=== PATIENT | male | born 1945 | race Native Hawaiian/Other Pacific Islander ===

== ENCOUNTER 2018-01-12 11:28 | Inpatient (IN) | payer OTHER ==
[2018-01-12] MEDS ORDERED: LORazepam 2 MG/ML INJ IM STA (12:42)
[2018-01-12] MEDS ORDERED: diphenhydrAMINE 50 MG/ML 1 ML VIAL IM STA (12:42)
--- NOTE | 2018-01-12 12:46 | ED ---
General Adult HPI - General Source: patient, family Mode of arrival: ambulatory Limitations: no limitations <Alexi Prajapati - Last Filed: 01/12/18 21:49> <Elieser Crooks - Last Filed: 01/13/18 01:51> - General Chief complaint: Psychiatric Symptoms Stated complaint: Mental Health Time Seen by Provider: 01/12/18 12:09 - History of Present Illness Initial comments: Patient is a 9-year-old male with a history of schizophrenia who presents with a chief complaint of davis. He is here with his family. The patient just flew in from [place] for a graduation, family states that his symptoms of been getting worse since . They state he has not slept since . They state that he has had manic episodes in the past however this is the worst one. They state that the patient was cleared to fly by his primary care doctor. The patient is unable to offer his history, spots are flighty and speech is pressured and tangential. (Alexi Prajapati) - Related Data Home Medications Medication Instructions Recorded Confirmed Aspirin EC [Ecotrin Low Dose] 81 mg PO DAILY 01/12/18 01/12/18 Cholecalciferol (Vitamin D3) 2,000 unit PO DAILY 01/12/18 01/12/18 [Vitamin D3] Lisinopril-Hctz 20-25 mg 1 tab PO DAILY 01/12/18 01/12/18 [Zestoretic 20-25] Lurasidone [Latuda] 20 mg PO DAILY 01/12/18 01/12/18 Omeprazole [PriLOSEC] 20 mg PO DAILY 01/12/18 01/12/18 levETIRAcetam [Keppra] 500 mg PO BID 01/12/18 01/12/18 traZODone HCL 50 mg PO HS PRN 01/12/18 01/12/18 Allergies Allergy/AdvReac Type Severity Reaction Status Date / Time No Known Allergies Allergy Verified 01/12/18 13:08 Review of Systems ROS Other: All systems not noted in ROS Statement are negative. Psychiatric: Reports: other (davis) <Alexi Prajapati - Last Filed: 01/12/18 21:49> ROS Other: All systems not noted in ROS Statement are negative. <Elieser Crooks - Last Filed: 01/13/18 01:51> ROS Statement: Those systems with pertinent positive or pertinent negative responses have been documented in the HPI. Past Medical History Past Medical History: GERD/Reflux, Hypertension, Seizure Disorder History of Any Multi-Drug Resistant Organisms: None Reported Past Surgical History: Hernia Repair Past Psychological History: Bipolar, Depression, Schizoaffective Disorder Smoking Status: Current every day smoker Past Alcohol Use History: Occasional Past Drug Use History: Marijuana <Alexi Prajapati Last Filed: 01/12/18 21:49> General Exam Limitations: no limitations General appearance: alert, anxious Head exam: Present: atraumatic, normocephalic Eye exam: Present: normal appearance, PERRL ENT exam: Present: normal exam Neck exam: Present: normal inspection, full ROM. Absent: meningismus, lymphadenopathy Respiratory exam: Present: normal lung sounds bilaterally. Absent: respiratory distress, wheezes Cardiovascular Exam: Present: regular rate, normal rhythm GI/Abdominal exam: Present: soft. Absent: distended, tenderness Rectal exam: Present: deferred Extremities exam: Present: normal inspection Back exam: Present: normal inspection Neurological exam: Present: alert, CN II-XII intact Psychiatric exam: Present: agitated, anxious, manic Skin exam: Present: warm, dry, intact <Alexi Prajapati Last Filed: 01/12/18 21:49> Vital Signs 01/12/18 01/12/18 01/12/18 11:29 12:26 13:32 Temperature 98.7 F Pulse Rate 130 H 115 H 98 Respiratory 18 22 20 Rate Blood Pressure 176/100 123/67 O2 Sat by Pulse 96 100 Oximetry 01/12/18 01/12/18 01/12/18 14:51 15:43 17:00 Temperature Pulse Rate 98 89 89 Respiratory 20 22 20 Rate Blood Pressure 132/56 134/56 145/65 O2 Sat by Pulse 95 95 95 Oximetry 01/12/18 01/12/18 01/12/18 18:45 20:27 22:00 Temperature Pulse Rate 89 98 71 Respiratory 20 16 15 Rate Blood Pressure 141/56 120/76 128/61 O2 Sat by Pulse 99 97 92 L Oximetry Medical Decision Making - Lab Data Result diagrams: 01/12/18 13:30 01/12/18 13:30 <Alexi Prajapati - Last Filed: 01/12/18 21:49> - Lab Data Result diagrams: 01/12/18 13:30 01/12/18 13:30 <Elieser Crooks - Last Filed: 01/13/18 01:51> - Medical Decision Making Patient presents with a chief complaint of davis. On initial evaluation, the patient is agitated, his speech is pressured and tangential, the patient denies auditory or visual hallucinations. At this time, patient is unable to offer history and is uncooperative with exam. He will be given Benadryl, Haldol, and Ativan. Patient will be evaluated with basic labs including a thyroid screen, CPK, cardiac enzymes, and CT of the head. 9:50PM lab evaluation unremarkable except for mild leukocytosis. no source of infection found. on re-evaluation, patient is much calmer. patient slept for about 5 hours in the ED and is much more cooperative after waking up. patient was evaluated by EPS. plan to admit patient, however patient is seen at the [facility] and [facility] this case will be followed by overnight physician. (Alexi Prajapati) I was asked to see the patient regarding following clinical certification. I reviewed the chart and spoke with the patient. He does continue to have some disorganized thought processes and a little bit of delusional thought content. ( Elieser Crooks) - Lab Data Lab Results 01/12/18 01/12/18 01/12/18 Range/Units 13:30 13:30 13:30 WBC 13.8 H (3.8-10.6) k/uL RBC 4.70 (4.30-5.90) m/uL Hgb 14.5 (13.0-17.5) gm/dL Hct 42.8 (39.0-53.0) % MCV 91.1 (80.0-100.0) fL MCH 30.8 (25.0-35.0) pg MCHC 33.9 (31.0-37.0) g/dL RDW 13.6 (11.5-15.5) % Plt Count 525 H (150-450) k/uL Neutrophils % 78 % Lymphocytes % 10 % Monocytes % 8 % Eosinophils % 3 % Basophils % 0 % Neutrophils # 10.7 H (1.3-7.7) k/uL Lymphocytes # 1.4 (1.0-4.8) k/uL Monocytes # 1.1 H (0-1.0) k/uL Eosinophils # 0.4 (0-0.7) k/uL Basophils # 0.1 (0-0.2) k/uL Sodium 142 (137-145) mmol/L Potassium 4.3 (3.5-5.1) mmol/L Chloride 104 (98-107) mmol/L Carbon Dioxide 22 (22-30) mmol/L Anion Gap 16 mmol/L BUN 23 H (9-20) mg/dL Creatinine 1.08 (0.66-1.25) mg/dL Est GFR (CKD-EPI)AfAm 80 (>60 ml/min/1.73 sqM) Est GFR (CKD-EPI)NonAf 69 (>60 ml/min/1.73 sqM) Glucose 129 H (74-99) mg/dL Calcium 10.4 H (8.4-10.2) mg/dL Total Bilirubin 0.9 (0.2-1.3) mg/dL AST 40 (17-59) U/L ALT 31 (21-72) U/L Alkaline Phosphatase 55 (38-126) U/L Creatine Kinase 672 H (55-170) U/L Troponin I (0.000-0.034) ng/mL NT-Pro-B Natriuret Pep 91 pg/mL Total Protein 7.8 (6.3-8.2) g/dL Albumin 4.8 (3.5-5.0) g/dL Lipase 183 (23-300) U/L TSH 0.553 (0.465-4.680) mIU/L Serum Alcohol <10 mg/dL 01/12/18 Range/Units 13:30 WBC (3.8-10.6) k/uL RBC (4.30-5.90) m/uL Hgb (13.0-17.5) gm/dL Hct (39.0-53.0) % MCV (80.0-100.0) fL MCH (25.0-35.0) pg MCHC (31.0-37.0) g/dL RDW (11.5-15.5) % Plt Count (150-450) k/uL Neutrophils % % Lymphocytes % % Monocytes % % Eosinophils % % Basophils % % Neutrophils # (1.3-7.7) k/uL Lymphocytes # (1.0-4.8) k/uL Monocytes # (0-1.0) k/uL Eosinophils # (0-0.7) k/uL Basophils # (0-0.2) k/uL Sodium (137-145) mmol/L Potassium (3.5-5.1) mmol/L Chloride (98-107) mmol/L Carbon Dioxide (22-30) mmol/L Anion Gap mmol/L BUN (9-20) mg/dL Creatinine (0.66-1.25) mg/dL Est GFR (CKD-EPI)AfAm (>60 ml/min/1.73 sqM) Est GFR (CKD-EPI)NonAf (>60 ml/min/1.73 sqM) Glucose (74-99) mg/dL Calcium (8.4-10.2) mg/dL Total Bilirubin (0.2-1.3) mg/dL AST (17-59) U/L ALT (21-72) U/L Alkaline Phosphatase (38-126) U/L Creatine Kinase (55-170) U/L Troponin I <0.012 (0.000-0.034) ng/mL NT-Pro-B Natriuret Pep pg/mL Total Protein (6.3-8.2) g/dL Albumin (3.5-5.0) g/dL Lipase (23-300) U/L TSH (0.465-4.680) mIU/L Serum Alcohol mg/dL Disposition <Alexi Prajapati - Last Filed: 01/12/18 21:49> <Elieser Crooks - Last Filed: 01/13/18 01:51> Referrals: Nonstaff,Physician [Primary Care Provider] - 1-2 days
[2018-01-12] MEDS: HALOPERIDOL LACTATE 5 MG/ML 1 ML VIAL IM PRN ×2 (13:30→23:31)
[2018-01-12] MEDS ORDERED: diphenhydrAMINE 50 MG/ML 1 ML VIAL IVP STA (13:37)
[2018-01-12] MEDS ORDERED: LORazepam 2 MG/ML INJ IV STA (13:38)
[2018-01-12 13:46] LABS: Basophils # (A) 0.1 k/uL (0-0.2); Basophils % (A) 0 %; Eosinophils # (A) 0.4 k/uL (0-0.7); Eosinophils % (A) 3 %; HCT 42.8 % (39.0-53.0); HGB 14.5 gm/dL (13.0-17.5); Lymphocytes # (A) 1.4 k/uL (1.0-4.8); Lymphocytes % (A) 10 %; MCH 30.8 pg (25.0-35.0); MCHC 33.9 g/dL (31.0-37.0); MCV 91.1 fL (80.0-100.0); Mean Platelet Volume 6.2; Monocytes # (A) 1.1 k/uL (0-1.0); Monocytes % (A) 8 %; Neutrophils # (A) 10.7 k/uL (1.3-7.7); Neutrophils % (A) 78 %; Platelet Count 525 k/uL (150-450); RDW 13.6 % (11.5-15.5); WBC 13.8 k/uL (3.8-10.6)
[2018-01-12 13:51] LABS: ALT 31 U/L (21-72); AST 40 U/L (17-59); Albumin 4.8 g/dL (3.5-5.0); Alcohol <10 mg/dL; Alkaline Phosphatase 55 U/L (38-126); Anion Gap 16 mmol/L; Blood Urea Nitrogen 23 mg/dL (9-20); Calcium 10.4 mg/dL (8.4-10.2); Carbon Dioxide 22 mmol/L (22-30); Chloride 104 mmol/L (98-107); Creatine Kinase 672 U/L (55-170); Glucose 129 mg/dL (74-99); Lipase 183 U/L (23-300); Potassium 4.3 mmol/L (3.5-5.1); Sodium 142 mmol/L (137-145); Total Bilirubin 0.9 mg/dL (0.2-1.3); Total Protein 7.8 g/dL (6.3-8.2)
--- NOTE | 2018-01-12 14:06 | CT ---
EXAMINATION TYPE: CT brain wo con DATE OF EXAM: 01/12/2018 COMPARISON: NONE HISTORY: Mental Health CT DLP: 1150.[address] of the brain was performed. The ventricles, basal cisterns and sulci overlying the cerebral convexities demonstrate mild enlargem ent. There is no evidence for intracranial hemorrhage or sulcal effacement. Right occipital lobe focal ca lcifications may be related to remote insult. Underlying mass or vascular malformation is not exclude d. MRI recommended for further evaluation. There is decreased attenuation about the periventricular white matter and deep white matter of both c erebral hemispheres, compatible with chronic small vessel ischemia. Differential diagnosis does inclu de demyelination. No mass effects are seen.No midline shift. Osseous calvarium is intact. If symptoms persist consider MRI. IMPRESSION: 1. Age related atrophic and chronic small vessel ischemic change without acute intracranial process s een at this time.
[2018-01-12] MEDS ORDERED: traZODone HCL 50 MG TAB PO ONE (22:56)
[2018-01-13 12:51] LABS: Appearance,Urine Clear (Clear); Bilirubin,Urine Negative (Negative); Blood,Urine Negative (Negative); Color,Urine Yellow; Glucose,Urine (UA) Negative (Negative); Ketones,Urine Negative (Negative); Leukocyte Esterase,Urine Negative (Negative); Nitrite,Urine Negative (Negative); PH, Urine 5.5 (5.0-8.0); Protein,Urine Negative (Negative); Specific Gravity,Urine 1.018 (1.001-1.035); Urobilinogen,Urine <2.0 mg/dL (<2.0)
[2018-01-13 13:14] LABS: Amphetamine Screen,Urine Not Detected (NotDetected); Barbiturate Screen,Urine Not Detected (NotDetected); Benzodiazepines Screen,Urine Detected (NotDetected); Cocaine Screen,Urine Not Detected (NotDetected); Methadone Screen, Urine Not Detected (NotDetected); Opiate Screen,Urine Not Detected (NotDetected); Oxycodone Screen, Urine Not Detected (NotDetected); Phencyclidine Screen,Urine Not Detected (NotDetected); Tricyclic Antidepressant,Urine Not Detected (NotDetected); Urn Cannabinoid Scrn Detected (NotDetected)
[2018-01-13] MEDS ORDERED: MAG HYDROX/AL HYDROX/SIMETH 30 ML CUP PO PRN (13:45)
[2018-01-13] MEDS ORDERED: ZIPRASIDONE 20 MG VIAL IM PRN (13:45)
[2018-01-13] MEDS ORDERED: MAGNESIUM HYDROXIDE 2,400 MG/10 ML CUP PO PRN (13:45)
[2018-01-13] MEDS ORDERED: traZODone HCL 50 MG TAB PO PRN (13:46)
--- NOTE | 2018-01-13 15:18 | P.HP ---
Psychiatric H&P - . H&P Date: 01/13/18 History & Physical: Allergies Allergy/AdvReac Type Severity Reaction Status Date / Time No Known Allergies Allergy Verified 01/12/18 13:08 Vital Signs Temp 98.8 F 01/13/18 14:06 Pulse 83 01/13/18 14:06 Resp 18 01/13/18 14:06 BP 162/81 01/13/18 14:06 Pulse Ox 96 01/13/18 14:06 Intake & Output 01/12/18 01/13/18 01/13/18 18:59 06:59 18:59 Weight 72.575 kg Laboratory Last Values WBC 13.8 k/uL (3.8-10.6) H 01/12/18 13:30 RBC 4.70 m/uL (4.30-5.90) 01/12/18 13:30 Hgb 14.5 gm/dL (13.0-17.5) 01/12/18 13:30 Hct 42.8 % (39.0-53.0) 01/12/18 13:30 MCV 91.1 fL (80.0-100.0) 01/12/18 13:30 MCH 30.8 pg (25.0-35.0) 01/12/18 13:30 MCHC 33.9 g/dL (31.0-37.0) 01/12/18 13:30 RDW 13.6 % (11.5-15.5) 01/12/18 13:30 Plt Count 525 k/uL (150-450) H 01/12/18 13:30 Neutrophils % 78 % 01/12/18 13:30 Lymphocytes % 10 % 01/12/18 13:30 Monocytes % 8 % 01/12/18 13:30 Eosinophils % 3 % 01/12/18 13:30 Basophils % 0 % 01/12/18 13:30 Neutrophils # 10.7 k/uL (1.3-7.7) H 01/12/18 13:30 Lymphocytes # 1.4 k/uL (1.0-4.8) 01/12/18 13:30 Monocytes # 1.1 k/uL (0-1.0) H 01/12/18 13:30 Eosinophils # 0.4 k/uL (0-0.7) 01/12/18 13:30 Basophils # 0.1 k/uL (0-0.2) 01/12/18 13:30 Sodium 142 mmol/L (137-145) 01/12/18 13:30 Potassium 4.3 mmol/L (3.5-5.1) 01/12/18 13:30 Chloride 104 mmol/L (98-107) 01/12/18 13:30 Carbon Dioxide 22 mmol/L (22-30) 01/12/18 13:30 Anion Gap 16 mmol/L 01/12/18 13:30 BUN 23 mg/dL (9-20) H 01/12/18 13:30 Creatinine 1.08 mg/dL (0.66-1.25) 01/12/18 13:30 Est GFR (CKD-EPI)AfAm 80 (>60 ml/min/1.73 sqM) 01/12/18 13:30 Est GFR (CKD-EPI)NonAf 69 (>60 ml/min/1.73 sqM) 01/12/18 13:30 Glucose 129 mg/dL (74-99) H 01/12/18 13:30 Calcium 10.4 mg/dL (8.4-10.2) H 01/12/18 13:30 Total Bilirubin 0.9 mg/dL (0.2-1.3) 01/12/18 13:30 AST 40 U/L (17-59) 01/12/18 13:30 ALT 31 U/L (21-72) 01/12/18 13:30 Alkaline Phosphatase 55 U/L (38-126) 01/12/18 13:30 Creatine Kinase 672 U/L (55-170) H 01/12/18 13:30 Troponin I <0.012 ng/mL (0.000-0.034) 01/12/18 13:30 NT-Pro-B Natriuret Pep 91 pg/mL 01/12/18 13:30 Total Protein 7.8 g/dL (6.3-8.2) 01/12/18 13:30 Albumin 4.8 g/dL (3.5-5.0) 01/12/18 13:30 Lipase 183 U/L (23-300) 01/12/18 13:30 TSH 0.553 mIU/L (0.465-4.680) 01/12/18 13:30 Urine Color Yellow 01/13/18 12:42 Urine Appearance Clear (Clear) 01/13/18 12:42 Urine pH 5.5 (5.0-8.0) 01/13/18 12:42 Ur Specific [place] 1.018 (1.001-1.035) 01/13/18 12:42 Urine Protein Negative (Negative) 01/13/18 12:42 Urine Glucose (UA) Negative (Negative) 01/13/18 12:42 Urine Ketones Negative (Negative) 01/13/18 12:42 Urine Blood Negative (Negative) 01/13/18 12:42 Urine Nitrite Negative (Negative) 01/13/18 12:42 Urine Bilirubin Negative (Negative) 01/13/18 12:42 Urine Urobilinogen <2.0 mg/dL (<2.0) 01/13/18 12:42 Ur Leukocyte Esterase Negative (Negative) 01/13/18 12:42 Urine Opiates Screen Not Detected (NotDetected) 01/13/18 12:42 Ur Oxycodone Screen Not Detected (NotDetected) 01/13/18 12:42 Urine Methadone Screen Not Detected (NotDetected) 01/13/18 12:42 Ur Propoxyphene Screen Not Detected (NotDetected) 01/13/18 12:42 Ur Barbiturates Screen Not Detected (NotDetected) 01/13/18 12:42 U Tricyclic Antidepress Not Detected (NotDetected) 01/13/18 12:42 Ur Phencyclidine Scrn Not Detected (NotDetected) 01/13/18 12:42 Ur Amphetamines Screen Not Detected (NotDetected) 01/13/18 12:42 U Methamphetamines Scrn Not Detected (NotDetected) 01/13/18 12:42 U Benzodiazepines Scrn Detected (NotDetected) H 01/13/18 12:42 Urine Cocaine Screen Not Detected (NotDetected) 01/13/18 12:42 U Marijuana (THC) Screen Detected (NotDetected) H 01/13/18 12:42 Serum Alcohol <10 mg/dL 01/12/18 13:30 01/13/18 15:01 Identification: Alejo Ponce is a 72 years old [place] male living in [facility]. He was admitted to [facility] on 01/13/2018 stating that he has history of schizophrenia and came to ER with the chief complaint of davis. History of present illness: Patient is not a good historian. He said he came to [facility] to attend the graduation of his granddaughter apparently since 01/08/2018 he has been hyperactive not sleeping well talking too much etc. Patient denies any other behavioral problems, hallucinations etc. patient said he has bipolar disorder, psychosis and schizophrenia. He denies any other specific issues. Previous psychiatric history/drug and alcohol abuse: He said he was in psychiatric hospitals about 6 times. He gets his outpatient treatment at [facility]. He denies abusing alcohol. He says he has been smoking pot for about 15 years now. He said he smokes and eats Potcakes. He could not tell me how much he smokes or eats. He denies abusing other drugs. His drug screening is positive for cannabis and benzodiazepines. Previous medical history: He is not ALLERGIC to any medication. He has hypertension and GERD. He is on Keppra but he denies history of seizure disorder. He had right inguinal hernia repair and a small lump from the chest skin was removed in the past. Social history: He said he has some [employer]. When he was going to school he said he did not have any issues with learning or discipline. He said he went to school in [place] for the first 5 years and then he went to school in [place]. He could not tell me if he had played any sports games or about his to [facility] structure. He got in 1973 and currently lives with and his 40-year-old son who is single and an alcoholic. He said he was in the [employer] for 4 years and apparently he had a This past and was in some kind of a confinement for 3 or 15 months for demanding his discharge. He was in cargo section of the ship. He was discharged as he 3. He said he is 100% service- connected for schizophrenia or bipolar disorder and has [place] health insurance. He said he was a Mor[employer] but he has changed his druze and now he believes just in sun and teo. He denies any pending legal issues. He is heterosexual. Family history: He said his mother has cancer and father has hypertension. One brother committed suicide and another brother is an alcoholic. His son is also an alcoholic. Mental status examination: This is a ambulatory Welsh Ghanaian with adequate hygiene. He is polite and cooperative. But he is not able to provide good history. He gets hyperactive and restless. His speech is spontaneous and mildly pressured with flight of ideas. His mood is from being anxious to elated and affect is appropriate. He denies suicide and homicide thoughts. He also denies hallucinations and delusional thinking. He is well oriented. He is able to recall only one out of 3 items after 5 minutes. He is able to name the last 4 presidents correctly. He is able to spell house both forwards and backwards correctly. He is able to say 8+7 is 15 and 87 is 56 without any difficulty. His insight appears to be adequate but his judgment is impaired as evidenced by his manic state of mind and not able to provide good history. Diagnostic impression: Bipolar 1 disorder current episode manic moderate F 31.12. Cannabis use disorder severe F 12.20. NKDA. Hypertension. GERD. Probable seizure disorder. Treatment plan: He will have physical examination and psychosocial evaluation. He will receive milieu therapy group therapy individual therapy occupational therapy recreational therapy and medication education. His home medications for physical problems will be continued. I will increase his Latuda from 20 to 40 mg a day and change trazodone when necessary at bedtime to melatonin 3 mg at bedtime to help him sleep well. Discharge with outpatient follow-up or transfer to the [facility] when they have an empty bed. Treatment goals: His mood will be stable. He will be able to sleep well. He will be able to provide better history. He will learn better coping skills. Estimated length of stay: 3-5 days.
[2018-01-13 15:45] VITALS: BMI 25.8
--- NOTE | 2018-01-13 16:41 | P.MDCNMH ---
History of Present Illness H&P Date: 01/13/18 Chief Complaint: Mental health evaluation 72 years old [place] male who lives in [facility], he's here for his granddaughter graduation constitution party. He was admitted to [facility] because of complaint of davis. He has been hyperactive, not sleeping well, talking too much. Denied hallucinations. He could only tell me that he has hypertension and a peptic ulcer. When asked to review his meds with me he wasn't able to remember any of his medications. During the conversation he became angry for repeating himself many times telling his history. He denied any recent illness, fevers, chills, nausea or vomitting. No chest pain or sob. Review of Systems 12 point review of system performed, negative except for HPI Past Medical History Past Medical History: GERD/Reflux, Hypertension, Seizure Disorder History of Any Multi-Drug Resistant Organisms: None Reported Past Surgical History: Hernia Repair Past Psychological History: Bipolar, Depression, Schizoaffective Disorder Smoking Status: Current every day smoker Past Alcohol Use History: Occasional Additional Past Alcohol Use History / Comment(s): Pt states he only has an alcoholic drink on special occasions Past Drug Use History: Marijuana Additional Drug Use History / Comment(s): Pt states he smokes marijuana daily, usually 5-6 joints a day Medications and Allergies Home Medications Medication Instructions Recorded Confirmed Type Aspirin EC [Ecotrin Low Dose] 81 mg PO DAILY 01/12/18 01/12/18 History Cholecalciferol (Vitamin D3) 2,000 unit PO DAILY 01/12/18 01/12/18 History [Vitamin D3] Lisinopril-Hctz 20-25 mg 1 tab PO DAILY 01/12/18 01/12/18 History [Zestoretic 20-25] Lurasidone [Latuda] 20 mg PO DAILY 01/12/18 01/12/18 History Omeprazole [PriLOSEC] 20 mg PO DAILY 01/12/18 01/12/18 History levETIRAcetam [Keppra] 500 mg PO BID 01/12/18 01/12/18 History traZODone HCL 50 mg PO HS PRN 01/12/18 01/12/18 History Allergies Allergy/AdvReac Type Severity Reaction Status Date / Time No Known Allergies Allergy Verified 01/12/18 13:08 Physical Exam Vitals: Vital Signs Temp Pulse Pulse Resp BP BP Pulse Ox 01/13/18 15:29 98.4 F 85 16 141/83 98 01/13/18 14:06 98.8 F 83 18 162/81 96 01/13/18 08:56 83 18 152/72 97 01/13/18 06:12 91 16 138/80 100 01/13/18 04:48 97.8 F 75 15 136/67 98 01/13/18 02:56 97.0 F L 75 20 128/75 96 01/12/18 22:00 71 15 128/61 92 L 01/12/18 20:27 98 16 120/76 97 01/12/18 18:45 89 20 141/56 99 01/12/18 17:00 89 20 145/65 95 Intake and Output 01/13/18 01/13/18 01/13/18 06:59 14:59 22:59 Other: Weight 79.3 kg Constitutional: No acute distress, conversant, pleasant Eyes:Anicteric sclerae, moist conjunctiva, no lid-lag, PERRLA, ENMT: Oropharynx clear, no erythema, exudates Neck: Supple, FROM, no masses, or JVD, No carotid bruits, No thyromegaly Lungs: Clear to auscultation, Clear to percussion, Normal respiratory effort, no accessory muscle use Cardiovascular: Heart regular in rate and rhythm, No murmurs, gallops, or rubs, No peripheral edema Abdominal: Soft, Nontender, no guarding, rebound or rigidity, Normoactive bowel sounds, No hepatomegaly, No splenomegaly, No palpable mass Skin: Normal temperature, tone, texture, turgor, no induration, No subcutaneous nodules, No rash, lesions, No ulcers Extremities: No digital cyanosis, No clubbing, Pedal pulses intact and symmetrical, Radial pulses intact and symmetrical, No calf tenderness Psychiatric: Alert and oriented to person, place and time, impaired judgement Neuro: Muscles Strength 5/5 in all 4 extremities, Sensation to light touch grossly present throughout, Cranial nerves II-XII grossly intact, no focal sensory deficits Cranial Nerve Examination - Cranial Nerves Cranial Nerve II- Optic: Intact Cranial Nerve III- Oculomotor: Intact Cranial Nerve IV- Trochlear: Intact Cranial Nerve V- Trigeminal: Intact Cranial Nerve - Abducens: Intact Cranial Nerve VII- Facial: Intact Cranial Nerve VIII- Auditory: Intact Cranial Nerve IX- Glossopharyngeal: Intact Cranial Nerve X- Vagus: Intact Cranial Nerve XI- Accessory: Intact Cranial Nerve XII- Hypoglossal: Intact Results CBC & Chem 7: 01/12/18 13:30 01/12/18 13:30 Labs: Abnormal Lab Results - Last 24 Hours (Table) 01/13/18 Range/Units 12:42 U Benzodiazepines Scrn Detected H (NotDetected) U Marijuana (THC) Screen Detected H (NotDetected) Assessment and Plan Plan: # Manic episode, bipolar disorder: Management per psychiatry Checked CBC, CMP, TSH, urinalysis, urine drug screen, all reviewed HbA1c and lipid panel pending # Hypertension, essential, peptic ulcer disease, seizure disorder Stable Resume home medications # Smoking Patient is interested in nicotine patch, will order Advised to quit
[2018-01-13] MEDS ORDERED: NICOTINE 14MG/24HR PATCH TRANSDERM ONE (19:12)
[2018-01-13] MEDS: NICOTINE 14MG/24HR PATCH TRANSDERM SCH (19:12)
[2018-01-13] MEDS: MELATONIN 3 MG TABLET PO SCH (21:41)
[2018-01-13] MEDS: levETIRAcetam 500 MG TAB PO SCH (21:41)
[2018-01-14 02:37] LABS: Cholesterol 168 mg/dL (<200); HDL Cholesterol 39 mg/dL (40-60); LDL Cholesterol,Calculated 91 mg/dL (0-99); Triglycerides 189 mg/dL (<150)
[2018-01-14] MEDS ORDERED: LURASIDONE 40 MG TAB PO SCH (09:00)
[2018-01-14] MEDS: ASPIRIN 81 MG PO SCH (09:09)
[2018-01-14] MEDS: PANTOPRAZOLE 40 MG TABLET PO SCH (09:09)
[2018-01-14] MEDS: LISINOPRIL-HCTZ 20-25 MG 1 EACH TAB PO SCH (09:09)
[2018-01-14] MEDS: levETIRAcetam 500 MG TAB PO SCH ×2 (09:09→21:46)
[2018-01-14] MEDS: CHOLECALCIFEROL 1,000 UNIT TAB PO SCH (09:09)
[2018-01-14] MEDS: LURASIDONE 40 MG TAB PO SCH (09:09)
[2018-01-14 11:06] LABS: Hemoglobin A1C 5.8 % (4.0-6.0)
--- NOTE | 2018-01-14 11:48 | P.PN ---
Progress Note - Text Progress Note Date: 01/14/18 Patient was seen for follow-up examination. He has not been sleeping well and has not shown any behavioral disturbances. He says he doesn't usually sleep much and he gets plenty of sleep. He has been taking his medications, attends groups and socializes with some peers. He does not have any particular complaint. This is a [place] male with good hygiene. He is polite and cooperative. He gets a little hyperactive. His speech is spontaneous and pressured. He talked a lot about numbers, christian system, how he wanted to be a white man when he was little etc. He uses foul language at times and said [facility] is a bad person and doesn't know anything much. He said the OR gave him an MRI and told them that part of his brain is still growing and they want to give him a follow-up examination but it is not yet time for it. His mood is cheerful and affect is appropriate to the thought content. He continues to deny suicide and homicide thoughts. He denies hallucinations. But he appears to be somewhat grandiose and paranoid. He is well oriented with adequate memory concentration general fund of knowledge etc. Plan: Continue Latuda, melatonin and other medications, groups and therapies.
[2018-01-14] MEDS: NICOTINE 14MG/24HR PATCH TRANSDERM SCH (15:33)
[2018-01-14] MEDS: MELATONIN 3 MG TABLET PO SCH (21:46)
[2018-01-15] MEDS: PANTOPRAZOLE 40 MG TABLET PO SCH (09:26)
[2018-01-15] MEDS: levETIRAcetam 500 MG TAB PO SCH ×2 (09:26→20:09)
[2018-01-15] MEDS: CHOLECALCIFEROL 1,000 UNIT TAB PO SCH (09:26)
[2018-01-15] MEDS: LISINOPRIL-HCTZ 20-25 MG 1 EACH TAB PO SCH (09:26)
[2018-01-15] MEDS: ASPIRIN 81 MG PO SCH (09:26)
[2018-01-15] MEDS: NICOTINE 14MG/24HR PATCH TRANSDERM SCH (09:27)
[2018-01-15] MEDS: LURASIDONE 40 MG TAB PO SCH (09:27)
[2018-01-15] MEDS ORDERED: LURASIDONE 40 MG TAB PO ONE (11:45)
--- NOTE | 2018-01-15 11:46 | P.PN ---
Progress Note - Text Progress Note Date: 01/15/18 Patient was seen for a follow-up examination. He said he got a call from his doctor last night and asked him if he is going to behavioral during the graduation green party on of this month. He said that hurt is feeling and he is very upset, and doesn't want to go to the green party and either will go to the [place] from here or go home only on or of this month to catch his flight on . He has been taking his medications without any adverse effect. He attends groups, but, apparently he has been talking a lot making lots of grandiose statements etc. This is a malian Monegasque male with adequate hygiene. He is polite and cooperative. He does not show any psychomotor agitation or retardation. His speech is spontaneous, pressured with flight of ideas. 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 He talks about reincarnation, spiritual books of Katie etc. His mood is elated and affect is appropriate to the thought content. He denies suicide and homicide thoughts. He denies hallucinations. He continues to be grandiose. He is oriented with adequate memory general knowledge etc. Plan: Increase Latuda to 80 mg a day and start him on Trileptal 300 mg twice a day for better mood stabilization. Continue groups and other therapies.
[2018-01-15] MEDS: OXcarbazepine 300 MG TAB PO SCH ×2 (11:51→20:09)
[2018-01-15] MEDS: MELATONIN 3 MG TABLET PO SCH (20:09)
[2018-01-16] MEDS: LORazepam 1 MG TAB PO PRN ×2 (01:22→23:12)
[2018-01-16] MEDS: OXcarbazepine 300 MG TAB PO SCH ×2 (09:03→21:32)
[2018-01-16] MEDS: NICOTINE 14MG/24HR PATCH TRANSDERM SCH (09:03)
[2018-01-16] MEDS: CHOLECALCIFEROL 1,000 UNIT TAB PO SCH (09:03)
[2018-01-16] MEDS: PANTOPRAZOLE 40 MG TABLET PO SCH (09:04)
[2018-01-16] MEDS: LURASIDONE 80 MG TAB PO SCH (09:04)
[2018-01-16] MEDS: LISINOPRIL-HCTZ 20-25 MG 1 EACH TAB PO SCH (09:04)
[2018-01-16] MEDS: ASPIRIN 81 MG PO SCH (09:04)
[2018-01-16] MEDS: levETIRAcetam 500 MG TAB PO SCH ×2 (09:04→21:32)
--- NOTE | 2018-01-16 10:40 | P.PN ---
Progress Note - Text Progress Note Date: 01/16/18 Patient was seen for follow-up examination. He continues to be talkative and grandiose. He attends groups and socializes with peers and staff. He takes his medications and does not have any adverse effect. I talked to his and daughter, who are afraid that patient may fall apart if he goes to the graduation republican of his grand daughter tomorrow. They agreed to come and visit him tomorrow. Patient is comfortable in staying here instead of being discharged and having to attend the graduation republican tomorrow. This is a [place] ambulatory male with good hygiene. He is polite friendly cheerful and cooperative. He does not show any psychomotor agitation or retardation. He is not hyperactive either. His speech is spontaneous, pressured with some flight of ideas. His mood continues to be related and is grandiose. He says he is the greatest like Belkys Peterson and a reincarnation of [facility]. He denies suicide and homicide thoughts. He is well oriented with adequate memory, general knowledge etc. Plan: Continue Latuda 80 mg a day and Trileptal 300 mg twice a day, groups and other therapies.
[2018-01-16] MEDS: MELATONIN 3 MG TABLET PO SCH (21:32)
[2018-01-17] MEDS: NICOTINE 14MG/24HR PATCH TRANSDERM SCH (08:00)
[2018-01-17] MEDS: CHOLECALCIFEROL 1,000 UNIT TAB PO SCH (08:01)
[2018-01-17] MEDS: LURASIDONE 80 MG TAB PO SCH (08:01)
[2018-01-17] MEDS: OXcarbazepine 300 MG TAB PO SCH ×2 (08:01→20:34)
[2018-01-17] MEDS: LISINOPRIL-HCTZ 20-25 MG 1 EACH TAB PO SCH (08:01)
[2018-01-17] MEDS: levETIRAcetam 500 MG TAB PO SCH ×2 (08:01→20:34)
[2018-01-17] MEDS: ASPIRIN 81 MG PO SCH (08:01)
[2018-01-17] MEDS: PANTOPRAZOLE 40 MG TABLET PO SCH (08:01)
[2018-01-17] MEDS: ACETAMINOPHEN TAB 325 MG TAB PO PRN (09:09)
[2018-01-17] MEDS ORDERED: IBUPROFEN 600 MG TAB PO PRN (09:40)
--- NOTE | 2018-01-17 09:44 | P.PN ---
Subjective Progress Note Date: 01/17/18 Principal diagnosis: hip pain Patient is a 72-year-old Nepalese male with a history of hypertension, GERD, and seizure disorder who is currently admitted to the mental health care unit for davis. asked to evaluate him for right hip and shoulder pain after a fall. Apparently the patient was in group yesterday and fell of his chair. He ogt up and stretched and sat back down denying any pain. He has been up and walking since that time. He has been asking about receiving THC since being here. Due to the patient's room with nursing and found the patient asleep in bed. Patient did not arouse to his name being called and her the lights being turned on. He did arouse to light touch. He complains of pain in his right hip and right shoulder. Fall. He has no history of previous injury. He denies any chest pain or shortness of breath. He does state he has a headache and a slightly lightheaded. He reports adequate oral intake. He did not pass out yesterday but just slid off of his chair. He has not had difficulty ambulating. When asked where pain is he points to his right outer hip and right glenohumeral joint. Of note, patient fell back asleep during my examination of his hip and had to be woken up when I was examining of his right shoulder to participate in testing. I have offered him Motrin and Tylenol and he states those don't really work and he wants something stronger. I informed him that any additional pain medications will need to come from psychiatry, but that he needs to try these first. Objective - Vital Signs Vital signs: Vital Signs Temp 98.3 F 01/17/18 04:32 Pulse 83 01/17/18 08:11 Resp 20 01/17/18 08:11 BP 129/77 01/17/18 08:11 Pulse Ox 96 01/16/18 16:03 - Exam General: non toxic, no distress, appears at stated age Derm: warm, dry Head: atraumatic, normocephalic, symmetric Eyes: EOMI, no lid lag, anicteric sclera Mouth: no lip lesion, mucus membranes moist Cardiovascular: S1S2 reg, no murmur, positive posterior tibial pulse bilateral, Lungs: CTA bilateral, no rhonchi, no rales , no accessory muscle use Ext: no gross muscle atrophy, no edema, no contractures. No pain to palpation of the hip joint, no pain to hip abduction and abduction, internal rotation, external rotation, flexion, and extension. Negative Fabere 4. No pain to palpation of the gluteal area. Right shoulder no pelvic pain to palpation of right AC joint, glenohumeral joint, and scapula. No pain to flexion, extension , internal and external rotation, abduction, abduction, able to take his right hand and touch his left shoulder and both the front and the back. Neuro: CN II-XI grossly intact, no focal neuro deficits Psych: Sleeping on my arrival and awakes to light touch, Alert, oriented, appropriate affect - Labs CBC & Chem 7: 01/12/18 13:30 01/12/18 13:30 Assessment and Plan Assessment: Right hip and shoulder pain, musculoskeletal in origin -No indication for x-rays -Pain control with Tylenol and Motrin Fall with lightheadedness -No indication for head CT at this time -Neuo check Q4 X 24 hours -PT evaluation -recheck labs to screen for dehydration. Hypertension -Continue with lisinopril, hydrochlorothiazide GERD -Continue with PPI Bipolar disorder -Your psych management Thank you for allowing us to participate in the care of this patient. We will follow up on blood work and then follow peripherally. Do not hesitate to contact us with questions. Someone can be reached from the [facility] hospitalist group at all hours of the day at [phone].
[2018-01-17 10:31] LABS: HCT 38.2 % (39.0-53.0); MCH 31.7 pg (25.0-35.0); MCHC 34.1 g/dL (31.0-37.0); MCV 93.2 fL (80.0-100.0); Mean Platelet Volume 6.1; Platelet Count 475 k/uL (150-450); RDW 14.4 % (11.5-15.5); WBC 9.5 k/uL (3.8-10.6)
[2018-01-17 10:46] LABS: Anion Gap 12 mmol/L; Blood Urea Nitrogen 22 mg/dL (9-20); Calcium 9.8 mg/dL (8.4-10.2); Carbon Dioxide 27 mmol/L (22-30); Chloride 97 mmol/L (98-107); Glucose 124 mg/dL (74-99); Potassium 4.9 mmol/L (3.5-5.1); Sodium 136 mmol/L (137-145)
--- NOTE | 2018-01-17 18:58 | P.PN ---
Progress Note - Text Progress Note Date: 01/17/18 Interval history: Patient is seen in cross coverage today. He reports that his mood is doing well. He does not voice any adverse psychotropic medication side effects. He talks about looking at discharge planning for Friday. Mental status exam: He is alert and cooperative with the interview. His speech is fluent, not rapid or pressured. There does seem to be a grandiose nature at times. He denies any thoughts of harm to self or others. He does not verbalize any hallucinations. He does not show any agitation. Plan: Patient will be maintained on current psychotropic medication regimen. Continue to monitor for any medication side effects monitor his ongoing response. We'll continue to cover this patient through the weekend.
[2018-01-17] MEDS: MELATONIN 3 MG TABLET PO SCH (20:34)
[2018-01-18] MEDS: ACETAMINOPHEN TAB 325 MG TAB PO PRN ×2 (00:09→09:33)
[2018-01-18] MEDS: LORazepam 1 MG TAB PO PRN (00:09)
[2018-01-18] MEDS: NICOTINE 14MG/24HR PATCH TRANSDERM SCH (09:22)
[2018-01-18] MEDS: PANTOPRAZOLE 40 MG TABLET PO SCH (09:22)
[2018-01-18] MEDS: OXcarbazepine 300 MG TAB PO SCH ×2 (09:22→20:21)
[2018-01-18] MEDS: ASPIRIN 81 MG PO SCH (09:22)
[2018-01-18] MEDS: levETIRAcetam 500 MG TAB PO SCH ×2 (09:23→20:21)
[2018-01-18] MEDS: LISINOPRIL-HCTZ 20-25 MG 1 EACH TAB PO SCH (09:23)
[2018-01-18] MEDS: LURASIDONE 80 MG TAB PO SCH (09:28)
[2018-01-18] MEDS: CHOLECALCIFEROL 1,000 UNIT TAB PO SCH (09:28)
--- NOTE | 2018-01-18 13:13 | P.PN ---
Progress Note - Text Progress Note Date: 01/18/18 Interval history: Patient is seen in [facility] again today. He says he slept about 6 hours last night, he says he is ready to go home. He seems to be eating well and is ready to go to lunch. He does not voice any adverse psychotropic medication side effects. Mental status exam: He is alert and cooperative with the interview. He describes his mood as "good." He denies any thoughts of harm to self or others. He denies any hallucinations. He does not make any vee delusional statements. He does not show any agitation. Speech is not rapid or pressured today. Plan: We'll maintain current psychotropic medication regimen. Continue to monitor for any medication side effects and monitor his ongoing response.
[2018-01-18] MEDS: MELATONIN 3 MG TABLET PO SCH (20:21)
[2018-01-19] MEDS: LORazepam 1 MG TAB PO PRN (00:39)
[2018-01-19] MEDS: PANTOPRAZOLE 40 MG TABLET PO SCH (09:11)
[2018-01-19] MEDS: ASPIRIN 81 MG PO SCH (09:11)
[2018-01-19] MEDS: CHOLECALCIFEROL 1,000 UNIT TAB PO SCH (09:11)
[2018-01-19] MEDS: NICOTINE 14MG/24HR PATCH TRANSDERM SCH (09:11)
[2018-01-19] MEDS: levETIRAcetam 500 MG TAB PO SCH ×2 (09:11→20:12)
[2018-01-19] MEDS: OXcarbazepine 300 MG TAB PO SCH (09:12)
[2018-01-19] MEDS: LURASIDONE 80 MG TAB PO SCH (09:12)
[2018-01-19] MEDS: LISINOPRIL-HCTZ 20-25 MG 1 EACH TAB PO SCH (09:12)
--- NOTE | 2018-01-19 12:24 | P.PN ---
Progress Note - Text Progress Note Date: 01/19/18 Patient was seen for a follow-up examination. He has not been while and or combative. But he has been talking a lot and some of the staff members felt he was telling them that he was poisoned with antifreeze. But he says he was never poisoned by antifreeze, the antifreeze in the air conditioners if they seep out, they can become poisonous. Apparently he has not been sleeping well for the last night or the night before. But patient says he has been sleeping well enough. However his family came to visit him and it did not go well, he became angry, upset and agitated which caused him not to sleep well at night. This is an ambulatory [place] male with adequate hygiene. He is polite and cooperative. He does not show psychomotor agitation, retardation or hyperactivity. His speech is spontaneous and mildly pressured with some flight of ideas. His mood is euthymic and has grandiose thinking. But he is not preoccupied with grandiose thinking. He continues to deny suicide and homicide thoughts. He is well oriented with adequate memory, general knowledge etc. Plan: Continue Latuda 80 mg a day, increase Trileptal to 450 mg twice a day, continue groups and other therapies.
[2018-01-19] MEDS: OXcarbazepine 150 MG TAB PO SCH (20:12)
[2018-01-19] MEDS: MELATONIN 3 MG TABLET PO SCH (20:12)
--- NOTE | 2018-01-19 23:34 | XR ---
EXAMINATION TYPE: XR sacrum coccyx DATE OF EXAM: 01/19/2018 COMPARISON: NONE HISTORY: Fall. Pain. TECHNIQUE: 3 views FINDINGS: Segments have normal alignment. I see no fracture nor dislocation. Sacroiliac joints are in tact. IMPRESSION: Negative sacrum and coccyx exam.
[2018-01-20 01:44] VITALS: TEMP 97.7
[2018-01-20] MEDS: LORazepam 1 MG TAB PO PRN (01:59)
[2018-01-20] MEDS: NICOTINE 14MG/24HR PATCH TRANSDERM SCH (08:41)
[2018-01-20] MEDS: CHOLECALCIFEROL 1,000 UNIT TAB PO SCH (08:42)
[2018-01-20] MEDS: OXcarbazepine 150 MG TAB PO SCH (08:42)
[2018-01-20] MEDS: PANTOPRAZOLE 40 MG TABLET PO SCH (08:42)
[2018-01-20] MEDS: levETIRAcetam 500 MG TAB PO SCH (08:42)
[2018-01-20] MEDS: ASPIRIN 81 MG PO SCH (08:42)
[2018-01-20] MEDS: LISINOPRIL-HCTZ 20-25 MG 1 EACH TAB PO SCH (08:42)
[2018-01-20] MEDS: LURASIDONE 80 MG TAB PO SCH (08:42)
[2018-01-20 08:45] VITALS: BP 147/76; PULSE 97; RESP 20
--- NOTE | 2018-01-20 09:46 | P.DS ---
Providers Date of admission: 01/13/18 13:40 Expected date of discharge: 01/20/18 Attending physician: Ho Baron Consults: 01/13/18 13:45 Consult Physician Routine Consulting Provider: [facility] Reason/Comments: follow up H & P Do you want consulting provider notified?: Yes Primary care physician: Physician Nonstaff Hospital Course: Patient had his psychiatric evaluation, physical examination and psychosocial evaluation. After psychiatric evaluation it was agreed to increase his Latuda from 20 mg to 40 mg a day, trazodone was changed to melatonin 3 mg at bedtime. His medications for physical problems were continued at his prior dose at home. Since he continued to be somewhat manic his Latuda was increased to 80 mg a day and was also started on Trileptal 300 mg twice a day which was eventually increased to 450 mg twice a day. With these adjustments he improved, but, he continued to be somewhat demanding insisting on going home, would not understand or listen to the fact that we have to have a family meeting and hear from his family that they are ready to take him home. Eventually his called and said there are ADHD to take him home and in view of this it was agreed to discharge him. Condition on discharge: This is a [place]ian male with good hygiene. He is cooperative. He does not show any psychomotor agitation or retardation as long as his needs are met. His speech is spontaneous and mildly pressured. His mood is euthymic and affect is appropriate. He continues to be somewhat elated. Denies hallucinations, suicide and homicide thoughts. He is well oriented with adequate memory concentration general knowledge etc. His insight and judgment have improved. Diagnosis on discharge: Bipolar 1 disorder most recent episode manic moderate F 31.12. Cannabis use disorder severe F 12.20. NKDA. Hypertension. GERD. Probable seizure disorder. Patient was advised and agreed to take his medications as prescribed, not to drink alcohol or use drugs, to learn better coping skills through therapy, to seek drug counseling, not to drive or operate missionary if he feels sleepy, to call his psychiatrist if he feels confused gets suicidal or homicidal thoughts and if he cannot get hold of the psychiatrist to go to nearest ER. Patient Condition at Discharge: Stable Plan - Discharge Summary Discharge Rx Participant: No New Discharge Prescriptions: New Ibuprofen [Motrin] 600 mg PO TID PRN tab PRN Reason: Breakthrough Pain Lurasidone [Latuda] 80 mg PO DAILY 30 Days #30 tab Mag Hydrox/Al Hydrox/Simeth [Maalox] 30 ml PO Q4HR PRN cup PRN Reason: Gi Upset Melatonin 3 mg PO HS 30 Days #30 tablet OXcarbazepine [Trileptal] 450 mg PO BID 30 Days #60 tab Pantoprazole [Protonix] 40 mg PO AC-BRKFST tablet.dr Gonzalez levETIRAcetam [Keppra] 500 mg PO BID Lisinopril-Hctz 20-25 mg [Zestoretic 20-25] 1 tab PO DAILY Cholecalciferol (Vitamin D3) [Vitamin D3] 2,000 unit PO DAILY Aspirin EC [Ecotrin Low Dose] 81 mg PO DAILY Discontinued traZODone HCL 50 mg PO HS PRN PRN Reason: Insomnia Omeprazole [PriLOSEC] 20 mg PO DAILY Lurasidone [Latuda] 20 mg PO DAILY Discharge Medication List Aspirin EC [Ecotrin Low Dose] 81 mg PO DAILY 01/12/18 [History] Cholecalciferol (Vitamin D3) [Vitamin D3] 2,000 unit PO DAILY 01/12/18 [History] Lisinopril-Hctz 20-25 mg [Zestoretic 20-25] 1 tab PO DAILY 01/12/18 [History] levETIRAcetam [Keppra] 500 mg PO BID 01/12/18 [History] Ibuprofen [Motrin] 600 mg PO TID PRN tab 01/20/18 [Rx] Lurasidone [Latuda] 80 mg PO DAILY 30 Days #30 tab 01/20/18 [Rx] Mag Hydrox/Al Hydrox/Simeth [Maalox] 30 ml PO Q4HR PRN cup 01/20/18 [Rx] Melatonin 3 mg PO HS 30 Days #30 tablet 01/20/18 [Rx] OXcarbazepine [Trileptal] 450 mg PO BID 30 Days #60 tab 01/20/18 [Rx] Pantoprazole [Protonix] 40 mg PO AC-BRKFST tablet. 01/20/18 [Rx] Follow up Appointment(s)/Referral(s): Nonstaff,Physician [Primary Care Provider] - 1-2 days
== END 2018-01-20 14:14 | disposition home or self-care (01) | DRG 885 ==
LOC: EC 11:28 → 3MHU 01-13 13:40
PROVIDERS: ADMIT Psychiatry & Neurology Psychiatry; ATTEND Psychiatry & Neurology Psychiatry
DX: F31.12 Bipolar disorder, current episode manic without psychotic features, moderate (principal); F12.20 Cannabis dependence, uncomplicated; F17.200 Nicotine dependence, unspecified, uncomplicated; F25.9 Schizoaffective disorder, unspecified; G40.909 Epilepsy, unspecified, not intractable, without status epilepticus; I10 Essential (primary) hypertension; K21.9 Gastro-esophageal reflux disease without esophagitis; Z80.9 Family history of malignant neoplasm, unspecified; Z81.1 Family history of alcohol abuse and dependence; Z82.49 Family history of ischemic heart disease and other diseases of the circulatory system; Z81.8 Family history of other mental and behavioral disorders; Z79.82 Long term (current) use of aspirin; Z79.899 Other long term (current) drug therapy; Z71.6 Tobacco abuse counseling
CPT/HCPCS: 36415; 70450; 72220; 80048; 80053; 80061; 80306; 80320; 81003; 82075; 82550; 83036; 83690; 83880; 84443; 84484; 85025; 85027; 93005; 96372; 96374; 96375; 99285